=== PATIENT | female | born 1960 | race Caucasian/White ===

== ENCOUNTER 2016-09-14 13:46 | Day surgery (SDC) | payer MEDICAID ==
[~2016-09-14] VITALS: Ht 160 cm; Wt 74.8 kg
--- NOTE | ~2016-09-14 | OP ---
PATIENT NAME: YESSY TRIVEDI MEDICAL RECORD: [id number] :60 LOCATION:[facility] ADMISSION DATE: SURGEON: HEMALATHA SMART DO DATE OF OPERATION: 09/14/2016 PROCEDURE: EGD with biopsies and balloon dilation. INDICATIONS FOR PROCEDURE: Dysphagia, heartburn, nausea and vomiting, melena. SCOPE: Olympus video gastroscope. MEDICATIONS: Propofol IV per anesthesia. ESTIMATED BLOOD LOSS: Minimal. COMPLICATIONS: None. FINDINGS: Informed consent was given. The patient was made comfortable with the above medication. After reaching an adequate level of sedation by slow IV push, the patient was placed on her left side. An Olympus video gastroscope was advanced under direct visualization through the mouth to the second portion of duodenum. The upper, middle, and distal thirds of the esophagus appeared normal. At the GE junction, there was a small and mild Schatzki ring present. Involving this ring, there were two separate esophageal ulcers, which were small and measured approximately 3 mm in diameter. These ulcers were superficial without evidence of bleeding. There was mild LA class A reflux induced esophagitis at the GE junction as well. The endoscope was advanced into the stomach and retroflexed to view the cardia, where a small sliding hiatal hernia was present. The fundus and body of the stomach appeared normal. In the antrum and prepyloric region, there were multiple erosions and a few very shallow, superficial ulcerations. Appearances were consistent with NSAID effect. There was some granularity and erythema in the area consistent with possible gastritis. Random biopsies were taken to submit for histology and to rule out H. pylori. Scope was advanced beyond the pylorus into the duodenum where the bulb and second portion of the duodenum appeared normal. Scope was then withdrawn back to the Schatzki ring and a CRE balloon was placed through the endoscope. The ring was dilated up to 20 mm diameter successfully. The scope was then withdrawn from the patient. The patient tolerated the procedure well and there were no complications. IMPRESSIONS: 1. A mild Schatzki ring dilated up to 20 mm in diameter. 2. Reflux esophagitis grade A. 3. Esophageal ulcerations. 4. Small sliding hiatal hernia. 5. Gastritis of the antrum and prepyloric region as well as a few superficial gastric ulcers, which were not bleeding. PLAN AND RECOMMENDATIONS: 1. Discharge home when recovery parameters are met. 2. GERD diet and reflux precautions. 3. Avoid NSAIDs as tolerated. 4. Continue omeprazole 40 mg daily. 5. Carafate tablets 1 gram dissolved in the water 1 tablet 4 times daily for 14 days. OPERATIVE REPORT [id number] YESSY TRIVEDI 6. Follow up in GI clinic as needed. TRANSINT:[id number] Voice Confirmation ID: [id number] DOCUMENT ID: [id number] HEMALATHA SMART DO CC: [id number] DICTATION DATE: 09/14/161701 [facility] SPINNER: 09/15/16 0231 [facility] 09/14/16 [id number] [place] [address]
[2016-09-14 14:21] LABS: BASOPHILS 0.3 % (0-2); EOSINOPHILS 1.9 % (0-7); HEMATOCRIT 45.7 % (36.0-48.0); HEMOGLOBIN 15.2 g/dL (12-16); IMMATURE GRANULOCYTES 0.2 % (0-5); LYMPHOCYTES 20.9 % (15-50); MCH 29.5 pg (26.0-34.0); MCHC 33.3 g/dL (31.0-37.0); MCV 88.6 fL (80.0-100.0); MEAN PLATELET VOLUME 9.5 fL (7.4-10.4); MONOCYTES 10.8 % (2-11); NEUTROPHILS 65.9 % (40-80); PLATELET COUNT 332 10x3/uL (130-400); RBC 5.16 10x6/uL (4.00-5.40); RDW 13.8 % (11.5-14.5); WBC 9.7 10x3/uL (4.8-10.8)
[2016-09-14 15:01] LABS: ANION GAP 15.7 mmol/L (8-16); CALCIUM 10.4 mg/dL (8.5-10.1); CARBON DIOXIDE 30.4 mmol/L (21.0-32.0); CREATININE - SERUM 1.1 mg/dL (0.6-1.3); POTASSIUM - SERUM 4.1 mmol/L (3.5-5.1)
[2016-09-14] MEDS ORDERED: OMEPRAZOLE40 MG PO (15:07)
[2016-09-14] MEDS ORDERED: DYRENIUM50 MG PO (15:08)
[2016-09-14] MEDS ORDERED: NUCYNTA50 MG PO (15:09)
[2016-09-14] MEDS ORDERED: ATIVAN1 MG PO (15:10)
[2016-09-14] MEDS ORDERED: ROBAXIN-750750 MG PO (15:10)
[2016-09-14] MEDS ORDERED: LOVASTATIN20 MG PO (15:10)
[2016-09-14] MEDS ORDERED: GABAPENTIN100 MG PO (15:11)
[2016-09-14] MEDS ORDERED: ZESTRIL10 MG PO (15:11)
[2016-09-14] MEDS ORDERED: CYMBALTA20 MG PO (15:15)
[2016-09-14] MEDS ORDERED: ZOVIRAX400 MG PO (15:17)
[2016-09-14 15:28] VITALS: BP 126/65; Ht 160 cm; Wt 74.8 kg
[2016-09-14] MEDS ORDERED: DEPAKOTE125 MG PO (15:28)
--- NOTE | 2016-09-14 16:51 | NUR ---
BALOON DILATION 18 TO 20 MM.
--- NOTE | 2016-09-14 19:23 | NUR ---
1800--IV DC'D, PT UP TO DRESS. ISIDORO LEVI 181--DISCHARGE INSTRUCTIONS GIVEN, PT VERBALIZES UNDERSTANDING. ISIDORO LEVI
== END 2016-09-14 18:10 | disposition home or self-care (01) ==
LOC: D.OPS 13:46
PROVIDERS: Anesthesiology
DX: K22.2 Esophageal obstruction (principal); K21.0 Gastro-esophageal reflux disease with esophagitis; K44.9 Diaphragmatic hernia without obstruction or gangrene; K22.10 Ulcer of esophagus without bleeding; K29.70 Gastritis, unspecified, without bleeding; R12 Heartburn; Z01.812 Encounter for preprocedural laboratory examination

== ENCOUNTER → 2017-01-20 15:54 | Outpatient (CLI) | payer MEDICAID ==
[2016-09-14 15:28] VITALS: BMI 29.2
[~2017-01-20 15:54] MED LIST: ATIVAN1 MG PO; CYMBALTA20 MG PO; DEPAKOTE125 MG PO; DYRENIUM50 MG PO; GABAPENTIN100 MG PO; LOVASTATIN20 MG PO; NUCYNTA50 MG PO; OMEPRAZOLE40 MG PO; ROBAXIN-750750 MG PO; ZESTRIL10 MG PO; ZOVIRAX400 MG PO
== END | disposition home or self-care (01) ==
LOC: D.MRI 01-06 15:00
DX: M54.12 Radiculopathy, cervical region (principal); M54.16 Radiculopathy, lumbar region

== ENCOUNTER → 2017-09-13 16:24 | Outpatient (CLI) | payer MEDICAID ==
[2016-09-14 15:28] VITALS: BMI 29.2
== END | disposition home or self-care (01) ==
LOC: D.MRI 09-05 10:00
DX: M50.323 Other cervical disc degeneration at C6-C7 level (principal); R20.9 Unspecified disturbances of skin sensation; M79.602 Pain in left arm; M79.601 Pain in right arm; M54.2 Cervicalgia